=== PATIENT | female | born 1995 | race Caucasian/White ===

== ENCOUNTER 2019-06-14 04:10 | Inpatient (IN) | payer BC ==
[~2019-06-14] VITALS: Ht 160 cm; Wt 65.9 kg
[2019-06-14] VITALS (50 sets, daily range): BP systolic 99–141; BP diastolic 52–88; PULSE 55–136; TEMP 97.7–101.2
--- NOTE | 2019-06-14 04:15 | NUR ---
G1 at 39 weeks and 2 days arrives to unit with complaint of contractions that she thinks are regular. Pt states contractions started around 2200 last night and have kept her awake most of the night. States that she has had an increase in mucous as well, but no big gush of fluid like her water broke. Pt reports good movement and denies vaginal bleeding. Pt oriented to room, clean gown on on, bed in low and locked position. US and toco explained and applied. Plan of care reviewed with patient and spouse. Vital signs obtained. SVE 3/80/-3 membranes intact.
[2019-06-14] MEDS ORDERED: PRENATAL MVI (04:32)
[2019-06-14] MEDS ORDERED: FERROUSAL325 MG PO (04:33)
--- NOTE | 2019-06-14 05:45 | NUR ---
18 G IV started in left forearm. Admission labs obtained off IV start. Lactated Ringers infusing to gravity.
--- NOTE | 2019-06-14 05:55 | NUR ---
Pt requesting epidural at this time. Ernesto Mo, [employer] notified, will come to hospital.
[2019-06-14 05:56] LABS: BASO % 0.3 % (0.0-2.0); EOS # 0.1 (0.0-0.7); EOS % 0.4 % (0-4.0); HEMATOCRIT 42.1 % (37.0-47.0); HEMOGLOBIN 13.8 g/dl (12.5-16.0); LYMPH # 2.4 (1.2-3.4); LYMPH % 17.4 % (20.0-51.0); MEAN CELL VOLUME 93 fl (80.0-100.0); MEAN CORPUSCULAR HEMOGLOBIN 31 pg (27.0-31.0); MEAN CORPUSCULAR HGB CONC 33 g/dl (33.0-37.0); MEAN PLATELET VOLUME 10.7 fl (7.4-10.4); MONO % 7.3 % (1.7-9.3); PLATELET COUNT 213 K/mm3 (130-400); RED BLOOD COUNT 4.51 M/mm3 (4.10-5.30); REDCELL DISTRIBUTION WIDTH-CV 17.1 % (11.5-14.5)
--- NOTE | 2019-06-14 06:15 | NUR ---
0615- Patient up to bathroom. 0618- Patient back to bed, EFM reapplied. Patient sitting on edge of bed for epidural placement, Himanshu ashley CRNA at bedside. See epidural documenation.
--- NOTE | 2019-06-14 07:35 | NUR ---
0736- Patient calls out to report SROM. RN at bedside. 0737- Variable deceleration noted with contraction. Patient repositioned RL, SVE 5-6/100/-1 with light meconium fluid noted. Pericare given and patient repositioned LL then back to RL. Comfortable with epidural. 0750- Dr. Orr updated on patient assessment. Reviewed FHR strip, contraction pattern, SROM and SVE. Physician will come assess patient shortly.
--- NOTE | 2019-06-14 13:25 | NUR ---
Dr. Orr at bedside. SVE per provider 2. Pericare given, silver cateter removed prior to pushing. Orders to begin pushing. Physician remains on unit. 1340- Patient begins pushing with contractions with RN at bedside.
--- NOTE | 2019-06-14 15:40 | NUR ---
1540- Physician updated on pushing assessment, v/s, FHR strip. 1545- Physician at bedside. Patient continues pushing with contractions.
--- NOTE | 2019-06-14 16:08 | NUR ---
1608- of viable female infant attended by Dr. Orr. Infant to mothers abdomen and care of to Isai Lewis RN. Apgars 8//9. 1611- Spont. delivery of placenta. Pitocin bolus started per protocol at 333 ml/hr. IV noted to be infiltrating at 1615 and discontinued. Orders per physician for IM Methergine at this time. See EMAR. Second degree perineal laceration repaired by physician, patient tolerates well. Red hardeep performed by physician for 75 ml. Pericare given and ice pack applied to perineum. Patient updated on plan of care and safety reviewed.
--- NOTE | 2019-06-14 17:00 | NUR ---
Patient reports "aches and chills" and very shaky. Temperature rechecked, 101.2. Other VS WNL. Vaginal bleeding WNL. Physician notified, see physician notification.
[2019-06-15 00:30] VITALS: BP 118/62; PULSE 75; TEMP 99
[2019-06-15 04:20] VITALS: BP 103/52; PULSE 60; TEMP 98.1; TEMP 98.9
[2019-06-15] MEDS ORDERED: IBU600 MG PO (06:22)
[2019-06-15 06:30] VITALS: BP 98/53; PULSE 68; TEMP 98.7
[2019-06-15 07:44] LABS: HEMOGLOBIN 11.9 g/dl (12.5-16.0)
[2019-06-15 08:00] LABS: HEMATOCRIT 36.8 % (37.0-47.0)
[2019-06-15 10:50] VITALS: BP 104/53; PULSE 72; TEMP 98.8
[2019-06-15 15:10] VITALS: BP 111/53; PULSE 79; TEMP 97.8
[2019-06-15 20:50] VITALS: BP 109/60; PULSE 78; TEMP 98.1
--- NOTE | 2019-06-16 06:24 | NUR ---
Pt sleeping. Report received from off going RNAngie. Care taken over by this RN.
[2019-06-16 07:03] VITALS: BP 108/55; PULSE 62; TEMP 97.9
[2019-06-16] MEDS ORDERED: PERCOCET 325 MG1 TA2 PO (09:02)
--- NOTE | 2019-06-16 11:44 | NUR ---
Initial visit; Parents thanked [employer] for offering congratulations and God's blessings for the of their daughter. [employer]inist thanked them for choosing [facility].
== END 2019-06-16 11:25 | disposition home or self-care (01) | DRG 806 ==
LOC: LDRO 04:10 → OB 05:32 → LDR 05:32 → OB 19:20
PROVIDERS: Obstetrics & Gynecology; ADMIT Obstetrics & Gynecology
PROC: 10E0XZZ Delivery of Products of Conception, External Approach (ICD-10-PCS; principal; 2019-06-14)
PROC: 0KQM0ZZ Repair Perineum Muscle, Open Approach (ICD-10-PCS; 2019-06-14)
DX: O77.0 Labor and delivery complicated by meconium in amniotic fluid (principal); O86.4 Pyrexia of unknown origin following delivery; Z37.0 Single live birth; Z3A.39 39 weeks gestation of pregnancy; O70.1 Second degree perineal laceration during delivery
CPT/HCPCS: J2210; J2405; J2590; J7120

== ENCOUNTER 2021-04-09 13:03 | Inpatient (IN) | payer BC ==
[2021-04-09] VITALS (19 sets, daily range): BP systolic 86–127; BP diastolic 49–64; PULSE 67–93; TEMP 98.3–98.9
[~2021-04-09] VITALS: Ht 160 cm; Wt 62.7 kg
[~2021-04-09 13:03] MED LIST: FERROUSAL325 MG PO; IBU600 MG PO; PERCOCET 325 MG1 TA2 PO; PRENATAL MVI
[2021-04-09 13:44] LABS: BASO # 0.1 (0.0-0.2); BASO % 0.3 % (0.0-2.0); EOS # 0.1 (0.0-0.7); EOS % 0.7 % (0-4.0); GRAN # 11.5 (1.4-6.5); GRAN % 77.5 % (42.2-75.2); HEMATOCRIT 41.8 % (37.0-47.0); HEMOGLOBIN 14.2 g/dl (12.5-16.0); LYMPH % 13.6 % (20.0-51.0); MEAN CELL VOLUME 98 fl (80.0-100.0); MEAN CORPUSCULAR HEMOGLOBIN 33 pg (27.0-31.0); MEAN CORPUSCULAR HGB CONC 34 g/dl (33.0-37.0); MEAN PLATELET VOLUME 9.9 fl (7.4-10.4); MONO # 1.1 (0.1-0.6); MONO % 7.4 % (1.7-9.3); PLATELET COUNT 212 K/mm3 (130-400); RED BLOOD COUNT 4.28 M/mm3 (4.10-5.30); REDCELL DISTRIBUTION WIDTH-CV 13.1 % (11.5-14.5)
--- NOTE | 2021-04-09 13:45 | NUR ---
1315- Pt arrives on unit via wheelchair with complaints of contractions and SROM at 1230. Pt changes into gown. 1322- Pt assisted into bed, EFM and TOCO on and tracing well. O2 sat monitor on and tracing maternal HR. VSS. Pt states contractions started around 1000 this morning. Denies complications with . +FM per Pt. 1330- Amniotrace positive, SVE by this RN 8-/-1. Pt tolerating contractions very well, controlled. KYLE Marquez called to come to hospital for epidural placment. 1332- Dr Orr notifed of Pt status and asked to come to hospital for impending delivery. Veral orders received.
--- NOTE | 2021-04-09 14:15 | NUR ---
1412- Dr Orr at bedside. SVE 0, forebag ruptured with amniohook, clear, odorless fluid noted. Discussed POC, Pt and deny questions at this time.
[2021-04-09] MEDS ORDERED: OSCAL 500 TAB500 MG PO (14:25)
[2021-04-09] MEDS ORDERED: FISH OIL 1000MG1 CAP PO (14:26)
[2021-04-09] MEDS ORDERED: FERROUS SU325 MG/TAB PO (14:27)
--- NOTE | 2021-04-09 15:15 | NUR ---
1515- SVE complete/+ station. Practice push and head moves well. 1519- Dr Orr called and notified. MD coming to bedside from call room. 1521- MD at bedside. Pt pushes well with UC. Pt and room prepped for delivery. Marce, nursery RN called to bedside. 1527- of viable male , tended to by nursery RN. 1530- Delivery of placenta. Pitocin started at 333ml/hr. Fundus massaged to firm by . Laceration repaired. Pericare completed, ice pack and clean chux under buttock. Pt tolerated well. Pt with [id number].
--- NOTE | 2021-04-09 17:00 | NUR ---
Assumed care of patient. Rests in bed, alert. Denies any discomfort or pain at this time.
[2021-04-10] VITALS: BP 94/43; PULSE 70; TEMP 98.4
[2021-04-10 04:45] VITALS: BP 99/57; PULSE 64; TEMP 97.6
[2021-04-10 09:15] VITALS: BP 110/52; PULSE 72; TEMP 97.9
[2021-04-10] MEDS ORDERED: MOTRIN 600600 MG/TAB PO (10:35)
[2021-04-10 12:30] VITALS: BP 104/56; PULSE 63; TEMP 98.9
== END 2021-04-10 17:10 | disposition home or self-care (01) | DRG 807 ==
LOC: LDRO 13:03 → LDR 13:41 → OB 20:25
PROVIDERS: ADMIT Obstetrics & Gynecology
PROC: 10E0XZZ Delivery of Products of Conception, External Approach (ICD-10-PCS; principal; 2021-04-09)
PROC: 0HQ9XZZ Repair Perineum Skin, External Approach (ICD-10-PCS; 2021-04-09)
PROC: 3E033VJ Introduction of Other Hormone into Peripheral Vein, Percutaneous Approach (ICD-10-PCS; 2021-04-09)
DX: O70.0 First degree perineal laceration during delivery (principal); Z37.0 Single live birth; Z3A.40 40 weeks gestation of pregnancy
CPT/HCPCS: J2590; J2795; J7120